=== PATIENT | male | born 1935 | race Caucasian/White ===

== ENCOUNTER 2019-11-28 09:36 | Observation (INO) | payer MEDICARE ==
[~2019-11-28] VITALS: Ht 172.7 cm; Wt 62.4 kg
[~2019-11-28 09:36] MED LIST: ASPI325 PO; ATOR10 PO; VICODIN 5-3001 EACH PO
[2019-11-28] MEDS ORDERED: METOPROLOL (10:12)
[2019-11-28] MEDS ORDERED: LISINOPRIL (10:12)
[2019-11-28] MEDS ORDERED: HYDROCHLOROTHIAZIDE (10:12)
[2019-11-28] MEDS ORDERED: VANTIN (10:13)
[2019-11-28] MEDS ORDERED: CARBIDOPA/LEVODOPA (10:13)
[2019-11-28 10:29] LABS: Hemoglobin 12.6 g/dL (13.5-17.5); Mean Corpuscular HGB 31.2 pg (26.0-34.0); Mean Corpuscular Volume 87 fL (80-100); Mean Platelet Volume 9.4 fL (9.1-12.4); NRBC ABSOLUTE 0.04 K/mm3 (0.00-0.02); NRBC Auto 0.4 /100 WBC (0.0-0.2); Platelet Count 142 K/mm3 (150-400); RDW Coefficient Variation 11.8 % (11.7-14.2); RDW Standard Deviation 37.9 fL (35.1-46.3); Red Blood Cell Count 4.04 M/mm3 (4.30-5.90); White Blood Cell Count 9.22 K/mm3 (4.00-11.30)
[2019-11-28 10:51] LABS: Alanine Aminotransfer (ALT/SGP 6 U/L (12-78); Albumin, Blood 2.6 g/dL (3.4-5.0); Albumin/Globulin Ratio 0.7 (0.8-1.8); Alk Phos 57 U/L (50-136); Aspartate Aminotrans (AST/SGOT 29 U/L (12-37); Bilirubin, Total 1.4 mg/dL (0.1-1.0); Blood Urea Nitrogen 20 mg/dL (8-24); Bun/Creatinine Ratio 32.9 (12.0-20.0); CO2, Blood 21 mmol/L (21-32); Chloride, Blood 72 mmol/L (98-108); Creatinine, Blood 0.61 mg/dL (0.60-1.20); Globulin, Blood 3.8 g/dL (2.2-4.0); Glomerular Filtration Rate >60 (60-); Glucose, Blood 86 mg/dL (70-99); Potassium, Blood 4.2 mmol/L (3.5-5.5); Total Protein, Blood 6.4 g/dL (6.4-8.2)
[2019-11-28 10:53] LABS: Anion Gap 16 mmol/L (6-16); BAND PERCENT MAN 16 % (0-8); BASOPHILS PERCENT MAN 0 % (0-2); EOSINOPHILS PERCENT MAN 0 % (0-6); LYMPHOCYTES ABSOLUTE MAN 0.82 K/mm3 (0.84-5.20); LYMPHOCYTES PERCENT MAN 9 % (21-46); MONOCYTES ABSOLUTE MAN 0.27 K/mm3 (0.16-1.47); MONOCYTES PERCENT MAN 3 % (4-13); NEUTROPHILS ABSOLUTE MAN 8.11 K/mm3 (1.96-9.15); SEG NEUTROPHILS PERCENT MAN 72 % (41-73); Sodium, Blood 109 mmol/L (136-145); TOTAL CELLS COUNTED 100
[2019-11-28] MEDS ORDERED: Zestril30 MG PO (11:39)
[2019-11-28] MEDS ORDERED: HYDCHL25 PO (11:39)
[2019-11-28] MEDS ORDERED: Carbidopa-Levo1 EACH PO (11:40)
[2019-11-28] MEDS ORDERED: METOPROLOL SUCC25 MG PO (11:40)
[2019-11-28] MEDS ORDERED: ATOR10 PO (11:40)
--- NOTE | 2019-11-28 13:00 | NUR ---
ADMITTED PT TO FLOOR. IS UNRESPONSIVE COMFORT CARE PT. DOES AWAKEN TO PRESSURE PAIN. NO RESPONSE EXCEPT GRIMMACE. H/R REG, MURMER PRESENT. >4 CAP REFILL HANDS. >6 CAP REFILL FEET. LUNGS CLEAR, RESP EASY UNLABORED ON 3L O2 IS MOUTH BREATHING. PLACED O2 ON MOUTH. INCONT B/B. IN ATTENDS. HAS RED AREA COCCYX. PLACED MEPILEX FOR PROTECTION. BED IN LOW POSITION,C ALL LITE IN REACH, BED ALARM ON FOR SAFETY. PEND BALANCE OF HX WHEN FAMILY AT BEDSIDE.
--- NOTE | 2019-11-28 15:19 | NUR ---
PT NOT RESPONSIVE. UNABLE TO ANS QUESTIONS. PEND FAMILY TO ANSWER WHEN RETURN TO BEDSIDE
--- NOTE | 2019-11-28 18:45 | NUR ---
PT ADMITTED THIS AFT ON COMFORT CARE. PT NONRESPONDANT. CAN OPEN EYES TO PAIN. MOUTH BREATHING, O2 IN MOUTH. HAVE NOT SEEN FAMILY YET. HISTORY PENDING. BED IN LOW POSITIOIN, CALL LITE IN REACH, BED ALARM ON FOR SAFEY
--- NOTE | 2019-11-29 01:57 | NUR ---
PT UNRESPONSIVE AND HAVING MORE EPISODES GURGLING WHILE BREATHING; THIS NURSE CALLED DANIELLE GREENE RN, IMPREGNATING TANK OPERATOR WHOM ADVISED PATIENT IS NOT WELL AND THAT FAMILY WILL BE NOTIFIED WITH ACKNOWLEDGEMENT NOTED; THIS NURSE CALLED PATIENTS --CANDICE AT [phone] AND ADVISED HER SPOUSE CURRENT CONDITION AND SHE INTENDS TO [facility].
--- NOTE | 2019-11-29 04:00 | NUR ---
SHIFT SUMMARY: 84 Y/O MALE ON COMFORT CARE; PT NON RESPONSIVE; REPOSITIONED Q2H BY STAFF; ROXANOL 20MG SL GIVEN FOR AIR HUNGER; BED ALARM APPLIED, BED LOW POSITION WITH CALL LIGHT AT SIDE.
--- NOTE | 2019-11-29 13:44 | NUR ---
pt eminent, family all at bedside interacting. review of pt with nursing
--- NOTE | 2019-11-29 14:54 | NUR ---
TIME OF 1447 CALLED TO THE ROOM BY PT'S SON STATING PATIENT NEEDS TO BE ASSESSED. PATIENT FOUND UNRESPONSIVE AND NOT BREATHING. ABSENT APICAL PULSE UPON AUSCULTATION, NO PULSE UPON PALPATION. NO CODE CALLED PER DNR ORDER. TIME OF 1447. CHARGE NURSE AKUA, NURSING SHIP SCRAPER ALFRED, AND DR. DE PAZ NOTIFIED. FAMILY IS CURRENTLY AT BEDSIDE, PRIVACY PROVIDED. PALLIATIVE CARE RN INFORMED.
--- NOTE | 2019-11-29 15:07 | NUR ---
pt family at bedside. no chaplian support wanted. assisted with funneral planning
== END 2019-11-29 17:15 ==
LOC: ER 09:36 → MEDS 09:37 → ER 11:40 → MEDS 12:51
PROVIDERS: Emergency Medicine; ADMIT Internal Medicine
DX: R62.7 Adult failure to thrive (principal); G20 Parkinson's disease; I10 Essential (primary) hypertension; I25.10 Atherosclerotic heart disease of native coronary artery without angina pectoris; Z95.5 Presence of coronary angioplasty implant and graft; Z79.899 Other long term (current) drug therapy; Z66 Do not resuscitate; Z51.5 Encounter for palliative care
CPT/HCPCS: 71045; 80053; 83880; 84484; 85025; 93005; 93010; 96361; 96374; 96375; 99285-25; G0378; J2060; J2405; J7030